=== PATIENT | male | born 1940 | race Two or more races ===

== ENCOUNTER 2020-07-04 10:41 | Emergency (ER) | payer MEDICARE, OTHER ==
[~2020-07-04] VITALS: Ht 180.3 cm; Wt 123.9 kg
[~2020-07-04 10:41] MED LIST: AMLO1TAB14 PO; METF750T PO; PIOG45TA20 PO
--- NOTE | 2020-07-04 11:20 | NUR ---
INDWELLING WHITFIELD PLACE WITHOUT INCIDENCE. ABOUT 750ML OF CLEAR YELLOW URINE DRAINED. UA COLLECTED AND TAKEN TO LAB.
[2020-07-04] MEDS ORDERED: METHYLNALTREXONE 12 MG/0.6 ML SYR SQ ONE ×2 (11:30)
[2020-07-04 11:34] LABS: MICROSCOPIC NOT IND
--- NOTE | 2020-07-04 11:37 | NUR ---
COMPANY PILOT PER JUN. BEDSIDE COMMODE PLACED IN ROOM.
[2020-07-04 11:38] LABS: BASOPHILS % (AUTO) 1 % (0-1); EOSINOPHILS % (AUTO) 0 % (1-7); LYMPHOCYTES % (AUTO) 6 % (22-44); MEAN CORPUSCULAR HEMOGLOBIN 33.5 pg (27.5-34.5); MEAN CORPUSCULAR HGB CONC 33.5 g/dL (33.2-36.2); MEAN PLATELET VOLUME 10.2 fL (7.4-10.4); MONOCYTES % (AUTO) 6 % (2-9); NEUTROPHILS % (AUTO) 87 % (42-75); PLATELET COUNT 219 x10^3/uL (130-400); RED BLOOD COUNT 4.17 x10^6/uL (4.38-5.82)
[2020-07-04 11:45] LABS: MD NO
[2020-07-04 11:48] LABS: ALBUMIN 3.5 g/dL (3.4-5.0); ANION GAP 11 mmol/L (5-15); CHLORIDE 93 mmol/L (98-107); CREATININE 2.46 mg/dL (0.7-1.3)
--- NOTE | 2020-07-04 12:04 | NUR ---
PT CURRENTLY SITTING ON BEDSIDE COMMODE. DAUGHTER AT BEDSIDE.
[2020-07-04] MEDS ORDERED: FUROSEMIDE (12:16)
[2020-07-04] MEDS ORDERED: POTASSIUM (12:16)
[2020-07-04] MEDS ORDERED: APIX5TAB PO (12:16)
[2020-07-04] MEDS ORDERED: SIMVASTATIN (12:16)
[2020-07-04] MEDS ORDERED: METALAZONE (12:16)
[2020-07-04] MEDS ORDERED: METOPROLOL TARTRATE (12:16)
--- NOTE | 2020-07-04 12:16 | NUR ---
PT GOING TO XRAY. PT HAS LIST OF MEDS, BUT NOT DOSAGES. MED REC COMPLETED WITH INFO AVAILABLE.
--- NOTE | 2020-07-04 12:34 | NUR ---
ALL RESULTS ARE BACK AT THIS TIME. CHART UP FOR RECHECK.
[2020-07-04 13:56] VITALS: BP 116/72
== END 2020-07-04 13:59 | disposition home or self-care (01) ==
LOC: ED 11:31
DX: N40.1 Benign prostatic hyperplasia with lower urinary tract symptoms (principal); N17.9 Acute kidney failure, unspecified; K59.00 Constipation, unspecified; R33.8 Other retention of urine; R10.9 Unspecified abdominal pain; Z87.891 Personal history of nicotine dependence
CPT/HCPCS: 36415; 51702; 74021; 80048; 81003; 82040; 85025; 96372; 99284